=== PATIENT | male | born 1955 | race Caucasian/White ===

== ENCOUNTER → 2017-11-04 | Outpatient (CLI) | payer BC ==
[~2017-11-04] MED LIST: Aspirin EC81 MG; BISA5EC PO; CHOL10002; FISH1000 PO; MELA3; PROBIOTIC1 EAC1 PO
[2017-11-04 17:10] LABS: Influenza A Positive (NEGATIVE); Influenza B Negative (NEGATIVE)
== END | disposition home or self-care (01) ==
LOC: LAB EV 15:44
PROVIDERS: Family Medicine
DX: R50.9 Fever, unspecified (principal)
CPT/HCPCS: 87804